=== PATIENT | female | born 1990 | race Caucasian/White ===

== ENCOUNTER 2017-03-12 19:31 | Emergency (ER) | payer OTHER | END 2017-03-12 21:04 | disposition home or self-care (01) | LOC: FER 19:31 | DX: S13.4XXA Sprain of ligaments of cervical spine, initial encounter (principal); V49.50XA Passenger injured in collision with unspecified motor vehicles in traffic accident, initial encounter; Y92.410 Unspecified street and highway as the place of occurrence of the external cause | CPT/HCPCS: 72072; 72125; J1030; J1885 ==